=== PATIENT | female | born 1950 | race Hispanic/Latino ===

== ENCOUNTER 2018-08-24 11:33 | Emergency (ER) | payer OTHER ==
[2018-08-24 12:04] LABS: APPEARANCE,URINE Cloudy (CLEAR); BILIRUBIN,URINE Small (NEGATIVE); COLOR,URINE Red (YELLOW); GLUCOSE, URINE (UA) Negative (NEGATIVE); KETONES,URINE Negative (NEGATIVE); LEUKOCYTE ESTERASE ,URINE Small (NEGATIVE); NITRATE,URINE Negative (NEGATIVE); OCCULT BLOOD,URINE Large (NEGATIVE); PH,URINE 6.5 (5.0-8.0); PROTEIN,URINE Trace (NEGATIVE); UROBILINOGEN,URINE 0.2 mg/dL (0.2-1.0)
[2018-08-24] MEDS ORDERED: SODIUM CHLORIDE 0.9% 1000ML 1,000 ML IV ONE (12:17)
[2018-08-24] MEDS ORDERED: KETOROLAC TROMETHAMINE 30MG/ML ONE (12:18)
[2018-08-24 12:30] LABS: BACTERIA,URINE Rare /HPF (None Seen); RBC,URINE TNTC /HPF (0-1); SQUAMOUS EPITHELIAL CELL,UR Rare /HPF (0-2)
[2018-08-24 12:34] LABS: BASOPHILS % (AUTO) 0.7 % (0.0-5.0); EOSINOPHILS % (AUTO) 0.4 % (0.0-8.0); HEMATOCRIT 41.6 % (36-48); LYMPHOCYTES % (AUTO) 15.4 % (21.0-51.0); MEAN CORPUSCULAR HEMOGLOBIN 35.1 pg (27.0-33.0); MEAN CORPUSCULAR HGB CONC 35.1 g/dL (32.0-36.0); MEAN CORPUSCULAR VOLUME 99.9 fL (79-99); MONOCYTES % (AUTO) 6.7 % (3.0-13.0); NEUTROPHILS % (AUTO) 76.8 % (40.0-77.0); PLATELET COUNT (AUTO) 206 K/uL (130-400); RED BLOOD CELL COUNT(AUTO) 4.17 MIL/uL (4.00-5.50); RED CELL DISTRIBUTION WIDTH 12.4 % (11.0-15.5)
[2018-08-24 12:42] LABS: CREATININE 0.7 mg/dL (0.5-1.5); POTASSIUM 4.2 mmol/L (3.5-5.1)
[2018-08-24 12:47] LABS: ALBUMIN 3.8 g/dL (3.5-5.0); BILIRUBIN,TOTAL 0.3 mg/dL (0.2-1.0); TOTAL PROTEIN, SERUM 8.4 g/dL (6.0-8.3)
[2018-08-24 13:06] LABS: INR 0.99 (0.85-1.15); PARTIAL THROMBOPLASTIN TIME 28.9 SEC (26.3-35.5); PROTHROMBIN TIME 10.4 SEC (9.6-11.6)
== END 2018-08-24 14:25 | disposition home or self-care (01) ==
LOC: EDH 11:33
DX: N30.00 Acute cystitis without hematuria (principal); N93.9 Abnormal uterine and vaginal bleeding, unspecified; Z88.1 Allergy status to other antibiotic agents; Z88.8 Allergy status to other drugs, medicaments and biological substances
CPT/HCPCS: 36415; 76856; 80053; 81001; 85025; 85610; 85730; 96374; 99285; J1885; J7030

== ENCOUNTER 2019-02-10 22:39 | Emergency (ER) | payer OTHER | END 2019-02-11 00:51 | disposition home or self-care (01) | LOC: EDH 22:39 | DX: J00 Acute nasopharyngitis [common cold] (principal); J30.2 Other seasonal allergic rhinitis; E11.9 Type 2 diabetes mellitus without complications; Z88.1 Allergy status to other antibiotic agents; Z88.8 Allergy status to other drugs, medicaments and biological substances; Z90.710 Acquired absence of both cervix and uterus | CPT/HCPCS: 70486 ==

== ENCOUNTER → 2019-06-11 | Outpatient (CLI) | payer OTHER ==
[~2019-06-11] VITALS: Ht 149.9 cm; Wt 79.0 kg
[~2019-06-11] MED LIST: ACET-2743 PO; ALBU8.5H8 IH; ALPH600C3 PO; CHAMOMILE PO; CINNAMON PO; GREEN TEA PO; L.AC1CAP6 PO; LORA10TA7 PO; MAGNESIUM PO; VITAMIN D 2 PO; [UNRECOGNIZED DRUG - OTHER] PO; [UNRECOGNIZED DRUG - OTHER] PO; [UNRECOGNIZED DRUG - OTHER] PO; [UNRECOGNIZED DRUG - OTHER] PO
[2019-06-11 12:58] LABS: BASOPHILS % (AUTO) 0.4 % (0.0-5.0); EOSINOPHILS % (AUTO) 1.2 % (0.0-8.0); HEMATOCRIT 37.8 % (36-48); LYMPHOCYTES % (AUTO) 29.8 % (21.0-51.0); MEAN CORPUSCULAR HEMOGLOBIN 34.4 pg (27.0-33.0); MEAN CORPUSCULAR HGB CONC 34.1 g/dL (32.0-36.0); MEAN CORPUSCULAR VOLUME 100.9 fL (79-99); MONOCYTES % (AUTO) 8.8 % (3.0-13.0); NEUTROPHILS % (AUTO) 59.8 % (40.0-77.0); PLATELET COUNT (AUTO) 198 K/uL (130-400); RED BLOOD CELL COUNT(AUTO) 3.75 MIL/uL (4.00-5.50); WHITE BLOOD COUNT (AUTO) 6.7 K/uL (4.8-10.8)
[2019-06-11 13:07] LABS: CREATININE 0.7 mg/dL (0.5-1.5); POTASSIUM 4.5 mmol/L (3.5-5.1)
[2019-06-11 13:10] VITALS: BP 141/56
== END ==
LOC: DAH 10:00 → EDSTATUS 12:00
PROVIDERS: ATTEND Obstetrics & Gynecology
DX: N95.0 Postmenopausal bleeding (principal); E11.9 Type 2 diabetes mellitus without complications; G43.909 Migraine, unspecified, not intractable, without status migrainosus; E66.9 Obesity, unspecified; Z88.8 Allergy status to other drugs, medicaments and biological substances; Z88.1 Allergy status to other antibiotic agents; Z79.899 Other long term (current) drug therapy; Z68.34 Body mass index [BMI] 34.0-34.9, adult; Z90.49 Acquired absence of other specified parts of digestive tract; Z53.8 Procedure and treatment not carried out for other reasons
CPT/HCPCS: 36415; 80048; 85025; 86850; 86900; 86901

== ENCOUNTER 2019-08-26 06:57 | Day surgery (SDC) | payer OTHER ==
[2019-08-20 14:01] VITALS: BP 188/82
[2019-08-20 14:05] LABS: BASOPHILS % (AUTO) 0.4 % (0.0-5.0); EOSINOPHILS % (AUTO) 0.7 % (0.0-8.0); HEMATOCRIT 39.5 % (36-48); LYMPHOCYTES % (AUTO) 22.2 % (21.0-51.0); MEAN CORPUSCULAR HEMOGLOBIN 34.7 pg (27.0-33.0); MEAN CORPUSCULAR HGB CONC 34.1 g/dL (32.0-36.0); MEAN CORPUSCULAR VOLUME 101.6 fL (79-99); MONOCYTES % (AUTO) 8.2 % (3.0-13.0); NEUTROPHILS % (AUTO) 68.5 % (40.0-77.0); PLATELET COUNT (AUTO) 192 K/uL (130-400); RED BLOOD CELL COUNT(AUTO) 3.89 MIL/uL (4.00-5.50); RED CELL DISTRIBUTION WIDTH 13.3 % (11.0-15.5); WHITE BLOOD COUNT (AUTO) 8.4 K/uL (4.8-10.8)
[2019-08-20 14:12] LABS: CREATININE 0.6 mg/dL (0.5-1.5); POTASSIUM 4.3 mmol/L (3.5-5.1)
--- NOTE | 2019-08-20 16:49 | NUR ---
JOSE ANGEL INFORMED DR. JOSELITO CEBALLOS NURSE OF PT TAKING Z[PACK FOR SINUS INFECTION. DR. YEE AWARE.
[~2019-08-26] VITALS: Ht 149.9 cm; Wt 80.0 kg
[2019-08-26] VITALS (21 sets, daily range): BP systolic 123–162; BP diastolic 57–80
[~2019-08-26 06:57] MED LIST changes: -ALPH600C3 PO; -CHAMOMILE PO; -GREEN TEA PO; -L.AC1CAP6 PO; -MAGNESIUM PO; +MOME17SP10 NS; +PHARMACY COMMUNICATION MISC SCH; -VITAMIN D 2 PO; +[UNRECOGNIZED DRUG - OTHER] PO; -[UNRECOGNIZED DRUG - OTHER] PO; -[UNRECOGNIZED DRUG - OTHER] PO; -[UNRECOGNIZED DRUG - OTHER] PO; -[UNRECOGNIZED DRUG - OTHER] PO
[2019-08-26] MEDS ORDERED: SODIUM CHLORIDE 0.9% 1000ML 1,000 ML IV ONE (07:38)
[2019-08-26] MEDS ORDERED: MIDAZOLAM HCL 1 MG/ML 2ML VIAL ONE (07:56)
[2019-08-26] MEDS ORDERED: LIDOCAINE PF 2% 5ML ABBOJECT ONE (08:01)
[2019-08-26] MEDS ORDERED: SUCCINYLCHOLINE 200MG/10ML SYR ONE (08:01)
[2019-08-26] MEDS ORDERED: PROPOFOL 10 MG/ML 20ML VIAL IV ONE (08:02)
[2019-08-26] MEDS ORDERED: ROCURONIUM 10MG/1ML SYR 10 MG/ML ML ONE (08:02)
[2019-08-26] MEDS ORDERED: GUAI1TAB PO (08:06)
[2019-08-26] MEDS ORDERED: MULT-1203 PO (08:06)
[2019-08-26] MEDS ORDERED: FENTANYL CITRATE PF 50 MCG/1 ML 2ML VIAL ONE (08:09)
[2019-08-26] MEDS ORDERED: IPRATROPIUM/ALBUTEROL SULFATE 3 ML SOLUTION IH ONE (09:05)
[2019-08-26] MEDS ORDERED: BENZOCAINE/MENTH/CETYLPYRD CL 1 EACH LOZENGE MM ONE (11:30)
== END 2019-08-26 12:10 | disposition home or self-care (01) ==
LOC: DAH 06:57
PROVIDERS: ATTEND Obstetrics & Gynecology
DX: N95.0 Postmenopausal bleeding (principal); N85.8 Other specified noninflammatory disorders of uterus; I10 Essential (primary) hypertension; E66.01 Morbid (severe) obesity due to excess calories; E11.9 Type 2 diabetes mellitus without complications; Z68.35 Body mass index [BMI] 35.0-35.9, adult; Z79.2 Long term (current) use of antibiotics; Z79.899 Other long term (current) drug therapy; Z88.8 Allergy status to other drugs, medicaments and biological substances; Z98.890 Other specified postprocedural states; Z82.49 Family history of ischemic heart disease and other diseases of the circulatory system; Z83.3 Family history of diabetes mellitus; Z82.3 Family history of stroke
CPT/HCPCS: 36415; 58100; 80048; 82948 ×3; 85025; 88305; 94640; A4215; A4221; A4222; A4223; A4351; A4663; A6260; J0330; J2001; J2250; J2704; J3010; J7030

== ENCOUNTER 2021-08-04 20:47 | Emergency (ER) | payer MEDICARE, OTHER ==
[~2021-08-04] VITALS: Ht 149.9 cm; Wt 83.9 kg
[~2021-08-04 20:47] MED LIST changes: +GUAI1TAB PO; -MOME17SP10 NS; +MOME17SP12 NS; +MULT-1203 PO; -PHARMACY COMMUNICATION MISC SCH
[2021-08-05 00:05] VITALS: BP 160/84
== END 2021-08-05 01:00 | disposition home or self-care (01) ==
LOC: EDH 20:47
DX: M25.561 Pain in right knee (principal); E11.9 Type 2 diabetes mellitus without complications; Z79.51 Long term (current) use of inhaled steroids; Z79.899 Other long term (current) drug therapy; Z88.1 Allergy status to other antibiotic agents; Z88.8 Allergy status to other drugs, medicaments and biological substances
CPT/HCPCS: 29505

== ENCOUNTER → 2025-02-25 | Outpatient (CLI) | payer MEDICARE ==
--- NOTE | 2025-02-25 13:38 | HMCIMG ---
Exam Type: US THYROID/NECK Clinical Information: NONTOXIC SINGLE THY NODULE Comparison: None Findings: Right thyroid lobe is normal in size and homogeneous and shows 2 simple cysts of the upper pole measuring 3 and 3 mm respectively. Left thyroid lobe is normal in size but somewhat heterogeneous echotexture and demonstrates a solid complex well-circumscribed nodule of the upper pole measuring 8 mm, probably benign. Isthmus measures 2 mm. IMPRESSION: Probably benign nodule of the left thyroid lobe. One-year follow-up recommended.
== END | disposition home or self-care (01) ==
LOC: RAH 11:29
PROVIDERS: ATTEND Otolaryngology
DX: E04.2 Nontoxic multinodular goiter (principal)
CPT/HCPCS: 76536

== ENCOUNTER → 2025-03-23 | Outpatient (CLI) | payer MEDICARE ==
[2025-03-23 22:48] VITALS: PULSE 76; RESP 12
[2025-03-23 22:59] VITALS: PULSE 83; RESP 20
[2025-03-23 23:33] VITALS: PULSE 79; RESP 18
[2025-03-24] VITALS (11 sets, daily range): PULSE 61–79; RESP 14–18
== END | disposition home or self-care (01) ==
LOC: SLP 20:39
PROVIDERS: ATTEND Otolaryngology
DX: G47.33 Obstructive sleep apnea (adult) (pediatric) (principal); R06.83 Snoring; I10 Essential (primary) hypertension; E11.9 Type 2 diabetes mellitus without complications; R51.9 Headache, unspecified; R53.83 Other fatigue
CPT/HCPCS: 95810

== ENCOUNTER → 2025-04-21 | Outpatient (CLI) | payer MEDICARE ==
--- NOTE | 2025-04-22 06:44 | HMCIMG ---
EXAM: CT Maxillofacial Without IV contrast. CLINICAL HISTORY: Other chronic sinusitis. TECHNIQUE: Axial computed tomography images of the maxillofacial area without intravenous contrast. Sagittal and coronal reformatted images were generated. CONTRAST: None. COMPARISON: Maxillofacial CT scan dated 02/10/2019. FINDINGS: FACIAL BONES/ORBITS: No acute fracture or aggressive appearing osseous lesion. The mandible is intact. The orbits are normal. No retrobulbar hematoma or mass. The paranasal sinuses appear clear. 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 SOFT TISSUES: The soft tissues are unremarkable. No radiopaque foreign body or focal fluid collection seen. IMPRESSION: The paranasal sinuses are clear. No acute bony abnormality. 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 No gross interval changes. /[place]
== END | disposition home or self-care (01) ==
LOC: RAH 13:15
PROVIDERS: ATTEND Otolaryngology
DX: M26.641 Arthritis of right temporomandibular joint (principal); J32.8 Other chronic sinusitis
CPT/HCPCS: 70486